=== PATIENT | male | born 1975 | race Hispanic/Latino ===

== ENCOUNTER 2021-12-10 17:56 | Emergency (ER) | payer SELFPAY ==
--- NOTE | ~2021-12-10 | CT_ITS ---
EXAMINATION: CT abdomen pelvis w con DATE: 12/10/2021 20:08 INDICATION: RUQ pain TECHNIQUE: Computed tomography (CT) of the abdomen and pelvis was performed with 100 mL Omnipaque-350 intravenous contrast. Automated exposure control and iterative reconstruction technique were employe d. The dose-length product was 415.87 mGy-cm. COMPARISON: None. FINDINGS: Lower thorax: Dependent atelectasis. Cardiomegaly. Liver: Liver is enlarged, with fatty infiltration and a nodular border Biliary/Gallbladder: Gallbladder is normal. No bile duct dilation. Pancreas: No mass or duct dilation. Spleen: Normal. Adrenals:No mass. Kidneys: No mass, stone, or hydronephrosis. GI tract: No small or large bowel dilation. Normal appendix. Diverticulosis without diverticulitis. Mesentery/Peritoneum: No ascites, mass, or free air. Retroperitoneum: No mass. Pelvis: Mild bladder wall thickening and surrounding interval change. Mild prostate enlargement.. Soft Tissues: Soft tissues and body wall unremarkable. Bones: No acute osseous finding. IMPRESSION: Hepatomegaly, steatosis, and likely cirrhosis. Cystitis versus chronic bladder outlet obstruction. Ot herwise, no acute abdominopelvic process detected. Reviewed, dictated and finalized at location K. IMPRESSION: Hepatomegaly, steatosis, and likely cirrhosis. Cystitis versus chronic bladder outlet obstruction. Otherwise, no acute abdominopelvic process detected.
[2021-12-10 18:13] VITALS: BP 184/96; PULSE 78; RESP 20; TEMP 36.9; O2SAT 99
[2021-12-10 18:52] LABS: Appearance Urine Clear (Clear); Bilirubin Urine Negative (Negative); Blood Urine Negative (Negative); Color Urine Yellow (Yellow); Glucose Urine UA Negative (Negative); Ketones Urine Negative (Negative); Leukocyte Esterase Ur Negative LEU/UL (Negative); Nitrate Urine Negative (Negative); Protein Urine 1+ mg/dL (Negative); Specific Grav Ur 1.015 (1.001-1.035); Urobilinogen Urine 0.2 mg/dL (<2.0); pH Urine 8.5 (5.0-9.0)
[2021-12-10 19:00] LABS: Add Urine Microscopic? YES; RBC Urine 0-2 /hpf (0-2); Squamous Epithelial Cell Urine Few /hpf (Few); WBC Urine 0-3 /hpf (0-3)
[2021-12-10 19:01] LABS: Bacteria Urine Trace /hpf
--- NOTE | 2021-12-10 19:05 | ED.ABDPAIN ---
HPI - Abdominal Pain General Chief Complaint: Abdominal Pain Stated Complaint: RLQ pain Time Seen by Provider: 12/10/21 18:03 History of Present Illness HPI narrative: 46-year-old [place]-speaking male presents emergency room for evaluation of right upper quadrant pain that is been present for a month. Patient states the pain is worse when he gets home from work. Denies any vomiting diarrhea or constipation. Does endorse occasional nausea. States the pain does not radiate. Patient states that he was evaluated at an outside emergency room approximately 1 month ago but cannot remember what the diagnosis was. Patient states he was given pain medication which alleviated his pain initially. Patient admits to heavy alcohol use dailydenies fevers injury or trauma. Related Data Allergies Allergy/AdvReac Type Severity Reaction Status Date / Time No Known Allergies Allergy Verified 12/10/21 18:19 Review of Systems Review of Systems: CONSTITUTIONAL: Denies fever, chills, or sweats. EYES: Denies visual changes, redness, or discharge. ENT: Denies rhinorrhea, congestion, sore throat, or otalgia. CARDIOVASCULAR: Denies chest pain, palpitations, or edema. RESPIRATORY: Denies cough or dyspnea. GASTROINTESTINAL: Reports right upper quadrant abdominal pain, nausea GENITOURINARY: Denies dysuria or hematuria. SKIN: Denies rash or itching. MUSCULOSKELETAL: Denies back pain, joint pain, or myalgia. NEUROLOGIC: Denies headache, numbness, dizziness, or weakness. PSYCHIATRIC: Denies anxiety or depression. Exam Narrative: GENERAL: Well-appearing, well-nourished, no physical limitations, and in no acute distress. HEAD: Normocephalic, atraumatic. EYES: Conjunctivae normal, PERRLA and EOMI. CHEST: Clear to auscultation. No respiratory distress. No wheezes rales or rhonchi. No tenderness. HEART: Regular rate and rhythm. No murmur heard. Normal peripheral pulses. ABDOMEN: Soft, right upper quadrant tenderness, nondistended, normal active bowel sounds. BACK: No CVA tenderness; EXTREMITIES: Normal range of motion. No edema. No clubbing or cyanosis SKIN: Warm, dry, no rash. No noted wounds NEURO: No focal deficits. Alert and oriented x3. MAEW. CN's II-XI intact bilaterally, normal gait PSYCH: Cooperative. Normal mood and affect. Course Vital Signs Vital signs: Vital Signs Temperature 36.9 C 12/10/21 18:13 Pulse Rate 78 12/10/21 18:13 Respiratory Rate 20 12/10/21 18:13 Blood Pressure 184/96 H 12/10/21 18:13 Pulse Oximetry 99 12/10/21 18:13 Oxygen Delivery Room Air 12/10/21 18:13 Temperature 36.9 C 12/10/21 18:13 Pulse Rate 72 12/10/21 21:04 Respiratory Rate 16 12/10/21 21:04 Blood Pressure 172/97 H 12/10/21 21:04 Pulse Oximetry 97 12/10/21 21:04 Oxygen Delivery Room Air 12/10/21 18:13 MDM - Abdominal Pain MDM Narrative Medical decision making narrative: 46-year-old male history of heavy alcohol abuse presented to the emergency room with right-sided abdominal pain. Exam showed no signs of peritonitis. No evidence of an acute appendectomy at this time. Patient is well-appearing. Work-up demonstrates a low suspicion for acute hepatobiliary disease. Liver enzymes were elevated which coincided with fatty liver found on CT scan. Patient was also hypertensive. These findings are likely due to his heavy alcohol use. Encourage patient to use MiraLAX daily and to restrict his alcohol use. We will also refer patient to urology due to his moderately enlarged prostate. Lab Data Result diagrams: 12/10/21 19:12/10/21 19:22 Labs: Lab Results 12/10/21 12/10/21 12/10/21 Range/Units 18:37 19:22 19:22 WBC 6.4 (4.5-10.0) K/mm3 RBC 4.25 L (4.6-6.20) M/mm3 Hgb 13.8 L (14.0-18.0) g/dL Hct 40.6 L (42.0-52.0) % MCV 95.5 (80-100) fl MCH 32.5 (26-34) pg MCHC 34.0 (32-36) g/dl RDW 15.3 H (11.5-14.5) % Plt Count 178 (150-375) k/mm3 MPV
[2021-12-10 19:19] VITALS: BP 186/91; PULSE 71; RESP 16; O2SAT 97
--- NOTE | 2021-12-10 19:20 | PC.NURSE ---
Assumed care of pt at this time.
[2021-12-10] MEDS: SODIUM CHLORIDE 0.9% IV 1,000 ML 999 ML IV CONT (19:21)
[2021-12-10 19:27] LABS: Basophils Absolute Auto 0.1 K/mm3 (0.0-0.1); Basophils Percent Auto 1.9 % (0.2-1.2); Eosinophils Absolute Auto 0.1 K/mm3 (0-0.3); Eosinophils Percent Auto 1.3 % (0-4.4); Hematocrit 40.6 % (42.0-52.0); Hemoglobin 13.8 g/dL (14.0-18.0); Immature Granulocyte Absolute 0.01 K/mm3 (0.00-0.031); Immature Granulocyte Percent A 0.2 % (0-0.5); Lymphocytes Absolute Auto 1.16 K/mm3 (0.9-3.2); Lymphocytes Percent Auto 18.2 % (18.3-44.2); Mean Corpuscular Hemoglobin 32.5 pg (26-34); Mean Corpuscular Volume 95.5 fl (80-100); Mean Platelet Volume 9.9 fl (7.4-10.4); Monocytes Absolute Auto 0.5 K/mm3 (0.1-0.6); Neutrophils Absolute Auto 4.5 K/mm3 (1.3-6.7); Neutrophils Percent Auto 70.4 % (45.5-73.1); Platelet Count Result 178 k/mm3 (150-375); Red Blood Count 4.25 M/mm3 (4.6-6.20); Red Cell Distribution Width 15.3 % (11.5-14.5); White Blood Count 6.4 K/mm3 (4.5-10.0)
[2021-12-10 19:41] LABS: Alanine Aminotransferase 41 U/L (6-50); Albumin Level 4.6 g/dL (3.5-5.1); Alkaline Phosphatase 128 U/L (38-126); Anion Gap 10 mmol/L (8-16); Aspartate Amino Transferase 81 U/L (17-59); Bilirubin,Total 1.2 mg/dL (0.2-1.3); Blood Urea Nitrogen 5 mg/dL (9-20); Calcium 9.4 mg/dL (8.4-10.2); Carbon Dioxide 27 mmol/L (22-30); Chloride 102 mmol/L (98-107); Estimated CRCL calculation 140 ml/min; Estimated Glomerular Filt Rate > 60; Glucose 121 mg/dL (65-110); Lipase 158 U/L (23-300); Potassium 3.7 mmol/L (3.4-5.0); Sodium 139 mmol/L (137-145)
[2021-12-10] MEDS: HYDROmorphone HCL INJ (*CRX) 1 MG/ML SYR 0.5 MG IV PUSH (20:31)
[2021-12-10 21:04] VITALS: BP 172/97; PULSE 72; RESP 16; O2SAT 97
[2021-12-10 21:15] LABS: Prostate Specific Antigen 0.8 ng/mL (< OR = 4.0)
[2021-12-10 22:01] VITALS: BP 172/97; PULSE 73; RESP 16; O2SAT 98
== END 2021-12-10 22:01 | disposition home or self-care (01) ==
PROVIDERS: Emergency Medicine; Emergency Provider Nurse Practitioner Family
DX: K76.0 Fatty (change of) liver, not elsewhere classified (principal); N32.0 Bladder-neck obstruction; K59.00 Constipation, unspecified
CPT/HCPCS: 36415; 74177; 80053; 81001; 83690; 84153; 85025; 96361; 96374; 99284; J1170; J7030; Q9967